=== PATIENT | male | born 1975 | race Caucasian/White ===

== ENCOUNTER 2021-05-31 13:04 | Emergency (ER) | payer OTHER, SELFPAY ==
[~2021-05-31] VITALS: Ht 170.2 cm; Wt 99.8 kg
[2021-05-31 13:19] VITALS: BP 173/97
--- NOTE | 2021-05-31 15:09 | NUR ---
PATIENT ELOPED FROM FACILITY. DISCHARGE INSTRUCTIONS NOT GIVEN TO PATIENT. DR. VIEYRA NOTIFIED.
== END 2021-05-31 15:09 | disposition left against medical advice (07) ==
LOC: MED 13:04
DX: J06.9 Acute upper respiratory infection, unspecified (principal); Y04.8XXA Assault by other bodily force, initial encounter; Y93.89 Activity, other specified; Y92.89 Other specified places as the place of occurrence of the external cause; Y99.8 Other external cause status
CPT/HCPCS: 99281